=== PATIENT | female | born 1990 | race Caucasian/White ===

== ENCOUNTER 2017-06-13 11:06 | Day surgery (SDC) | payer OTHER ==
[~2017-06-13 11:06] MED LIST: CEFAZOLIN 1 GM INJ; LIDOCAINE 2% (SDV) 5 ML INJ
[2017-06-13] MEDS ORDERED: EPHEDrine SULFATE 50 MG/5 ML SYG IV (13:00)
[2017-06-13] MEDS ORDERED: METOCLOPRAMIDE 10 MG INJ IV (13:00)
[2017-06-13] MEDS ORDERED: KETOROLAC 30 MG INJ IV (13:00)
[2017-06-13] MEDS ORDERED: hydrALAzine 20 MG INJ IV (13:00)
[2017-06-13] MEDS ORDERED: ALBUTEROL 0.083% (NEB) 2.5 MG/3 ML AMP HHN (13:00)
[2017-06-13] MEDS ORDERED: OXYCODONE/ACETAMINOPHEN (5/325) TAB PO ×2 (13:00)
[2017-06-13] MEDS ORDERED: ONDANSETRON 4 MG INJ IV (13:00)
[2017-06-13] MEDS ORDERED: LABETALOL HCL 20MG INJ IV (13:00)
[2017-06-13] MEDS ORDERED: FENTAnyl 50 MCG/ML VIAL IV (13:00)
[2017-06-13] MEDS ORDERED: DIPHENHYDRAMINE 50 MG INJ IV (13:00)
[2017-06-13] MEDS ORDERED: HYDROmorphONE (0.2 MG/ML) 10ML SYG IV (13:00)
[2017-06-13] MEDS: BUPIVACAINE 0.5% (SDV) 30 ML INJ (13:05)
[2017-06-13] MEDS ORDERED: PROPOFOL 100 ML (13:09)
[2017-06-13] MEDS ORDERED: FENTAnyl 50 MCG/ML VIAL (13:09)
[2017-06-13] MEDS ORDERED: morphine 10 MG INJ (13:18)
[2017-06-13] MEDS ORDERED: DEXAMETHASONE 4 MG/ML 1 ML INJ (13:33)
[2017-06-13] MEDS ORDERED: ONDANSETRON 4 MG INJ (13:49)
[2017-06-13] MEDS ORDERED: HYDROCODONE/APAP (10/325) TAB PO (14:00)
[2017-06-13] MEDS: MEPERIDINE 25 MG INJ IV (14:15)
[2017-06-13] MEDS: FENTAnyl 50 MCG/ML VIAL IV ×3 (14:19→14:36)
[2017-06-13] MEDS: HYDROmorphONE (0.2 MG/ML) 10ML SYG IV ×2 (14:39→14:50)
== END 2017-06-13 17:15 | disposition home or self-care (01) ==
LOC: SDS 11:06
DX: K64.4 Residual hemorrhoidal skin tags (principal); K64.8 Other hemorrhoids; K62.89 Other specified diseases of anus and rectum
CPT/HCPCS: 46255; 84703; 88304; 88307